=== PATIENT | male | born 1995 | race Caucasian/White ===

== ENCOUNTER 2019-04-08 22:24 | Emergency (ER) | payer OTHER ==
[~2019-04-08] VITALS: Ht 170.2 cm; Wt 75.0 kg
[2019-04-08 23:22] VITALS: BP 124/88
== END 2019-04-08 23:32 | disposition home or self-care (01) ==
LOC: M ED 22:24
DX: S61.012A Laceration without foreign body of left thumb without damage to nail, initial encounter (principal); W27.0XXA Contact with workbench tool, initial encounter; Y92.099 Unspecified place in other non-institutional residence as the place of occurrence of the external cause; Y93.9 Activity, unspecified; Y99.9 Unspecified external cause status